=== PATIENT | male | born 1950 | race Caucasian/White ===

== ENCOUNTER 2016-04-03 07:03 | Day surgery (SDC) | payer MEDICARE, OTHER ==
--- NOTE | 2016-04-02 11:20 | HP ---
DATE OF CLINIC: 03/21/2016 BEREKET TAYLOR : 1950 PLANNED PROCEDURE: Right Shoulder Arthroscopic Rotator Cuff Repair, Possible Capsular Release and Manipulation under Anesthesia, possible Subacromial Decompression and Biceps Tenodesis vs. Tenotomy DATE OF SURGERY: April 03, 2016 SURGEON: Luigi Morales M.D. HISTORY OF PRESENT ILLNESS Bereket Taylor is a 65 year old male. * Medication list reviewed with patient allergy list reviewed with patient. * Tried Injections * Has not tried NSAIDS * Has not tried Physical Therapy The patient is a 65-year-old, RHD male who has had persistent right shoulder pain since the spring. He was seen previously by a different orthopedic group, but became frustrated and asked to see me. I diagnosed the patient with a full thickness rotator cuff tear and because of a persistent amount of stiffness and capsulitis. Pre-operatively, I asked him to see PT which has helped his ROM but he is still not quite normal. He has two complaints: Pain and stiffness. He currently is working as [employer] Machine Operator. He continues to like to be active. He states that PT really has improved his ROM and his pain. He rates his pain between 1-2/10. He states that overall he thinks he is doing better, but would still like to talk about potentially moving ahead with surgery. He would like to talk to me a little bit about what arthroscopic surgery would entail and would like to show me today what his improvement of ROM looks like. We discussed both non-operative and surgical treatment and he has elected to proceed with surgery. He presents today preoperatively. CURRENT MEDICATION * AmLODIPine Besylate 5 MG Tablet 1 once a day 0 days, 0 refills * Aspirin 325 MG Tablet 1 once a day 0 days, 0 refills * Atorvastatin Calcium 40 MG Tablet 1 once a day 0 days, 0 refills * Bydureon 2 MG Pen-injector once a week 0 days, 0 refills * Carvedilol 25 MG Tablet 2 twice a day 0 days, 0 refills * EQL Vitamin D3 1000 UNIT Capsule as directed 0 days, 0 refills * Fish Oil 500 MG Capsule as directed 0 days, 0 refills * Glimepiride 4 MG Tablet as directed 0 days, 0 refills * Invokana 300 MG Tablet as directed 0 days, 0 refills * Lisinopril 10 MG Tablet as directed 0 days, 0 refills * MetFORMIN HCl 500 MG Tablet 2 twice a day 0 days, 0 refills * TraMADol HCl 50 MG Tablet 1 once a day called in to pts pharmacy, 0 days, 0 refills * TraMADol HCl 50 MG Tablet as directed: one tab by mouth every night as needed for pain, 45 days, 0 refills * Valsartan 320 MG Tablet 1 once a day 0 days, 0 refills PAST MEDICAL/SURGICAL HISTORY Reported: Medical: Reported numbness, Reported tingling, cardiac history heart attack 1994, Diabetes Mellitus, and Hypertension. Surgical / Procedural: Prior surgery facial. Skin cancer. SOCIAL HISTORY Behavioral: Not a current smoker and not chewing tobacco. Never smoked. Smoking status: Never smoker. Alcohol: No consumption of alcohol. Drug Use: Not using drugs. 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 ALLERGIES * Penicillin * Vistaril FAMILY HISTORY 3 children living Family medical history mother- heart disease father- heart disease, stroke, DM, HTN REVIEW OF SYSTEMS Systemic: No fever and no recent weight change. Cardiovascular: No chest pain or discomfort and no palpitations. Pulmonary: No dyspnea, no cough, and no wheezing. Gastrointestinal: No nausea, no vomiting, no abdominal pain, and no diarrhea. Hematologic: No easy bleeding and no tendency for easy bleeding (no blood clots). Neurological: No motor disturbances and no sensory disturbances. Skin: No skin lesions and no rash. PHYSICAL FINDINGS * Vitals taken 03/21/2016 10:53 am BP-Sitting R 139/117 mmHg 100 - 120/60 - 80 BP Cuff Size Regular Pulse Rate-Sitting 87 bpm 50 - 100 Pulse Rhythm Regular Temp-Oral 97.8 F 96 - 101 Height 73 in 64 - 74 Weight 296 lbs 123 - 215 Body Mass Index 39.1 kg/m2 Body Surface Area 2.54 m2 Pain Level 0 General Appearance: * Well developed. * In no acute distress. Eyes: General/bilateral: Extraocular Movements: * Normal. Lungs: * Clear to auscultation. * No wheezing was heard. * No rales/crackles were heard. Cardiovascular: Heart Rate and Rhythm: * Heart rate was normal. * Heart rhythm regular. Abdomen: Palpation: * Abdominal non-tender. Neurological: * Oriented to time, place, and person. Motor: * Dominant Hand = Right Hand. I examined the patient's right and left shoulders. He has had improvement in terms of his ROM on the right side but it is not quite normal. He continues to have a capsular restriction however compared to his left side. PHYSICAL FINDINGS RIGHT EXTREMITY Shoulder General Appearance: no scars, no bruising, no swelling, no gross deformity AROM Forward Flexion: 130 degrees (90 degrees previously) ABD: 90 degrees (100 degrees previously) IR: Highest posterior anatomy reached with thumb: Sacrum PROM Forward Flexion: 150 degrees ABD: 120 degrees ER (0): 40 degrees Strength (0-5/5) Deltoid: 5/5 Triceps: 5/5 Biceps: 5/5 EPL,Finger Flexors,Finger Extensors,Wrist Flexors, Wrist Extensors,Intrinsics,Diaper Machine Tender: 5/5 Rotator cuff Supraspinatus:POSITIVE empty can test Infraspinatus: 4/5 (no pain with resisted external rotation) Subscapularis: 5/5 (negative belly press test) Rotator Cuff Exam Neer's Sign: POSITIVE Hawkin's Sign: POSITIVE Biceps Exam Bicipital Groove Tenderness: POSITIVE [place]'s Sign: POSITIVE Speed's Test: POSITIVE Muscle Deformity ([place]): Not present AC Exam AC Tenderness: Not tender AC Deformity: Negative Instability Generalized Laxity(thumb to forearm,hyperextension of elbows and knees, hypermobility of multiple joints): Not present, no signs of instability present Other Medial Scapular Tenderness: Negative Trapezius Pain: Negative Vascular Exam Radial Pulse: 2+ Sensation Gross sensation to light touch in the distribution of Median, Ulnar and Radial nerves present PHYSICAL FINDINGS LEFT EXTREMITY Shoulder General Appearance: no scars, no bruising, no swelling, no gross deformity AROM Forward Flexion: 170 degrees ABD: 120 degrees IR: Highest posterior anatomy reached with thumb: L3 PROM Forward Flexion: 180 degrees ABD: 120 degrees ER (0): 50 degrees Strength (0-5/5) Deltoid: 5/5 Triceps: 5/5 Biceps: 5/5 EPL,Finger Flexors,Finger Extensors,Wrist Flexors, Wrist Extensors,Intrinsics,Diaper Machine Tender: 5/5 Rotator cuff Supraspinatus: 5/5 Negative empty can test Infraspinatus: 5/5 (no pain with resisted external rotation) Subscapularis: 5/5 (negative belly press test) Rotator Cuff Exam Neer's Sign: Negative Hawkin's Sign: Negative Superior Escape: Negative Biceps Exam Bicipital Groove Tenderness: Negative [place]'s Sign: Negative Speed's Test: Negative Muscle Deformity ([place]): Not present AC Exam AC Tenderness: Not tender AC Deformity: Negative Instability Generalized Laxity(thumb to forearm,hyperextension of elbows and knees, hypermobility of multiple joints): Not present, no signs of instability present Other Medial Scapular Tenderness: Negative Trapezius Pain: Negative Vascular Exam Radial Pulse: 2+ Sensation Gross sensation to light touch in the distribution of Median, Ulnar and Radial nerves present TESTS * Test: CBC NO DIFF Report Date: 03/21/2016 WBC 5.9 10*3/mL MCV 93.0 fL RBC 5.13 10*6/uL MCH 31.6 pg High MCHC 34.0 g/dL RDW 13.3 % PLATELET COUNT 203 10*3/mL HCT 47.7 % HGB 16.2 g/L * Test: BASIC METABOLIC PROFILE Report Date: 03/21/2016 BUN 11 mg/dL BUN/CREAT RATIO 12 CALCIUM 9.4 mg/dL GLUCOSE 112 mg/dL High CREATININE 0.9 mg/dL SODIUM 140 meq/L POTASSIUM 4.2 meq/L CHLORIDE 103 meq/L CARBON DIOXIDE 28 meq/L ANION GAP 13 meq/L GFR 85 IMAGING 12.21.2015--4 views of the right shoulder show no signs of glenohumeral osteoarthritis. No signs of frx or dislocation. The patient has a Type 2 acromion on the scapular Y view. 09.18.2015--MRI of the shoulder shows a right shoulder full thickness tear of the supraspinatus with a degenerative labral tear. The patient's MRI does not go too far medially but has some atrophy of his supraspinatus muscle belly. I would grade his atrophy as grade 2 Goutallier stage. ASSESSMENT Luigi Morales MD made the following assessments * Complete tear of right rotator cuff tendon * Rotator cuff tendonitis -right impingement syndrome * Bicipital tendonitis -right PLAN * OTHER OxyCODONE HCl 5 MG TABS, as directed: one to two tabs by mouth every 4-6 hours as needed for pain, 7 days, 0 refills Clindamycin HCl 150 MG CAPS, as directed: please take two tabs by mouth every 8 hours until completed after surgery, 2 days, 0 refills Luigi L. Puskas MD ordered the following therapy * Arthroscopy of the shoulder with RCR, capsular release, debridement, SAD and biceps tenodesis vs. tenotomy -right THERAPY * Patient fall risk screen negative. * Patient eligible for fall risk assessment. * Patient received fall risk assessment. SURGICAL CONSENT We have discussed surgical options including right shoulder arthroscopic rotator cuff repair, capsular release and possible manipulation, possible biceps tenotomy vs tenodesis and possible subacromial decompression. The patient and I spoke about his shoulder. I do think a rotator cuff repair can help with the patient's pain. I do have concerns about post-op stiffness due to his pre-operative capular tightness. I explained to the patient that I will possibly perform a capsular release but this still will not preclude the patient from developing stiffness. He states that he understands this. We then spoke about other complications such as infection which is increased due to his underlying diabetes. We spoke about a nerve block and the risks of injury to surrounding nerves and blood vessels. After a lengthy description, the patient signed the consent form and we discussed his post-op pain control. The patient was counseled in detail regarding the diagnosis, treatment options available, prognosis of each treatment option and the potential risks and complications. The risks of surgery include, but are not limited to, anesthetic , neurovascular complications, pulmonary embolism, deep vein thrombosis, wound dehiscence, failure of any or all of the discussed procedures, infection of the joint or surrounding soft tissue, need for revision surgery, chronic pain, limitations in activities of daily living, inability to return to work, and loss of normal range of motion or functional use of the extremity. There is the possibility of failure over time that may require additional operative or nonoperative treatment. The patient acknowledged that there are a number of perioperative risks not mentioned here and would still like to proceed. The patient is aware of and understands these risks, and wishes to proceed with the proposed surgical procedure and other procedures as indicated at the time of surgery. The patient has seen his PCP for a preoperative medical risk assessment. The preoperative instructions were reviewed with the patient and all questions were answered. CARE TEAM Car Beyer MD Internal Medicine BLP/sg
[~2016-04-03 07:03] MED LIST: CLINDAMYCIN 600 MG PREMIX 50 ML IV PRN; IV START KIT ONE; LACTATED RINGERS 1,000 ML ONE
[2016-04-03] MEDS ORDERED: CLINDAMYCIN 600 MG PREMIX 50 ML IV ONE (07:08)
[2016-04-03] MEDS ORDERED: KETAMINE HCL UD SYRINGE 100 MG/2 ML IV ONE (07:21)
[2016-04-03] MEDS ORDERED: ONDANSETRON 4 MG/2ML 2 ML VIAL ONE (07:21)
[2016-04-03] MEDS ORDERED: SUCCINYLCHOLINE CHL 20 MG/ML DOSE ONE (07:21)
[2016-04-03] MEDS ORDERED: ROCURONIUM BROMIDE 10 MG/ML DOSE IV ONE (07:21)
[2016-04-03] MEDS ORDERED: MIDAZOLAM HCL 5 MG/5 ML VIAL ONE (07:21)
[2016-04-03] MEDS ORDERED: FENTANYL 5 ML ONE (07:21)
[2016-04-03] MEDS ORDERED: GLYCOPYRROLATE 0.2 MG/ML 1ML VIAL ONE (07:21)
[2016-04-03] MEDS ORDERED: PROPOFOL 60 ML IV ONE (07:21)
[2016-04-03] MEDS ORDERED: DEXAMETHASONE SOD PHOS 4 MG/1 ML VIAL ONE (07:21)
[2016-04-03] MEDS ORDERED: LIDOCAINE 2% (PRES FREE) 5 ML VIAL ONE (07:26)
[2016-04-03] MEDS ORDERED: ROPIVACAINE 0.5% 30 ML VIAL ONE (07:35)
[2016-04-03] MEDS ORDERED: NERVE BLOCK PROCEDURAL TRAY 1 EACH ONE (07:35)
[2016-04-03] MEDS ORDERED: ESMOLOL HCL 10 MG/ML 10ML VIAL IV ONE (09:29)
[2016-04-03] MEDS ORDERED: PHENYLEPHRINE 10 MG/1 ML (1%) VIAL ONE (09:30)
[2016-04-03] MEDS ORDERED: PROPOFOL 20 ML IV ONE (09:31)
[2016-04-03] MEDS ORDERED: HYDROMORPHONE HCL 1 MG/ML SYRINGE IV PRN (11:41)
[2016-04-03] MEDS ORDERED: ATROPINE SULFATE 0.4 MG/1 ML VIAL IV PRN (11:41)
[2016-04-03] MEDS ORDERED: ONDANSETRON 4 MG/2ML 2 ML VIAL IV PRN (11:41)
[2016-04-03] MEDS ORDERED: PROMETHAZINE HCL 25 MG/ML VIAL IM PRN (11:41)
[2016-04-03] MEDS ORDERED: NALOXONE HCL 0.4 MG/ML VIAL IV PRN (11:41)
[2016-04-03] MEDS ORDERED: FENTANYL 100 MCG/2 ML VIAL IV PRN (11:41)
[2016-04-03] MEDS ORDERED: ON-Q PUMP/ROPIVACAINE 0.2% 400 ML in PREMIX BAG 1 EACH NB PRN (11:42)
[2016-04-03] MEDS ORDERED: LACTATED RINGERS 1,000 ML IV SCH ×2 (11:45→13:50)
[2016-04-03] MEDS ORDERED: ON-Q PUMP/ROPIVACAINE 0.2% 450 ML ONE (11:57)
--- NOTE | 2016-04-03 12:11 | PCMBPN ---
Brief Post Op Note: Date of Procedure: 04/03/16 Preoperative Diagnosis: 1. right shoulder rotator cuff tear, labral tear, adhesive capuslitis and impingement Postoperative Diagnosis: 1. [Same] Procedure: right shoulder arthroscopic rotator cuff repair, arthroscopic biceps tenotomy, arthroscopic capsular release and manipulation, arthroscopic labral tear debridment and arthroscopic subacromial decompression Surgeon: Luigi Morales MD Assist:Alok CF-A Anesthesia: GETA, right intrascalene block and catheter Findings: as expected, the patient had a Type 4 labral tear, full thickness rotator cuff tear, two medial row anchors (healix and corkscrew) and one lateral row anchor Condition: extubated, stable vitals transferred to pacu Complications: None IV Fluids: 3500 mLs of LR Urine Output: 285 mLs Estimated Blood Loss: 20 mLs Tourniquet Time: [N/A] Specimens: [N/A] Implants: None Drains: [N/A] PLAN: NWB on the RUE. SLing at all times for 4 weeks after surgery. Oxycodone and clinda for marti-op prescriptions
[2016-04-03] MEDS ORDERED: ALBUTEROL NEB 2.5 MG/3 ML VIAL.NEB NEB ONE ×2 (12:54→13:02)
[2016-04-03] MEDS ORDERED: FUROSEMIDE 20 MG/2 ML VIAL ONE (13:15)
[2016-04-03] MEDS ORDERED: FUROSEMIDE 20 MG/2 ML VIAL IV ONE (13:16)
[2016-04-03] MEDS ORDERED: MORPHINE SULFATE 2 MG/ML SYRINGE IV PRN (13:50)
[2016-04-03] MEDS ORDERED: DIPHENHYDRAMINE HCL 50 MG/1 ML VIAL IV PRN (13:50)
[2016-04-03] MEDS ORDERED: ACETAMINOPHEN 325 MG TABLET PO PRN (13:50)
[2016-04-03] MEDS ORDERED: OXYCODONE HCL 5 MG TABLET PO PRN (13:50)
--- NOTE | 2016-04-04 10:01 | OP ---
Bereket TAYLOR Nish : 1950 [id number] DATE OF PROCEDURE: April 03, 2016 PREOPERATIVE DIAGNOSES: Right shoulder rotator cuff tear, labral tear, adhesive capsulitis and impingement. POSTOPERATIVE DIAGNOSES: Right shoulder rotator cuff tear, labral tear, adhesive capsulitis and impingement. PROCEDURE: RIGHT SHOULDER ARTHROSCOPIC ROTATOR CUFF REPAIR, ARTHROSCOPIC BICEPS TENOTOMY, ARTHROSCOPIC CAPSULAR RELEASE AND MANIPULATION, LABRAL TEAR DEBRIDEMENT AND ARTHROSCOPIC SUBACROMIAL DECOMPRESSION. SURGEON: Luigi Morales M.D. MACHINE FEEDER FLOORPERSON: Xiomara Steven ANESTHESIA: General along with a right interscalene block and catheter. FINDINGS: As suspected the patient had a type 4 labral tear which extended into the biceps anchor and after probing this I thought he would benefit from treating this with a labral tear debridement and a biceps tenotomy. This was performed arthroscopically. The patient had a small area on the anterior aspect of his humeral head where he had a 2 cm x 1.5 cm area of chondromalacia. He had a full thickness tear crescent pattern of the rotator cuff. This was fixed with two medial row anchors which was a 5.5 corkscrew anchor and a 4.5 Healix anchor. These sutures were passed arthroscopically and placed down to one lateral row anchor. Prior to placing these sutures down the footprint was burred to allow good bleeding bed, I also performed a subacromial decompression. CONDITION: The patient was extubated with stable vital signs and transferred to the PACU. COMPLICATIONS: None. INTRAVENOUS FLUIDS: 3500 mL of Lactate Ringer's. URINE OUTPUT: 285 mL ESTIMATED BLOOD LOSS: 20 mL SPECIMENS: N/A TOURNIQUET TIME: N/A IMPLANTS: None. DRAINS: N/A PLAN: The patient will be nonweightbearing on the right upper extremity. We will plan on him wearing the sling for four weeks after surgery because of concerns of stiffness after surgery. Oxycodone and clindamycin were given preoperatively for his perioperative prescriptions. After my manipulation I was able to forward flex him to 170 degrees, abduct him to 120 degrees and externally rotate him to 50 degrees. INDICATIONS: The patient is a 65-year-old male who has had persistent pain in his right shoulder that has not improved with nonoperative treatment. Prior to the surgery I had the patient work with physical therapy to help with his range of motion. I told him that one of the increased complication risks for this patient is stiffness after the surgery, however I feel that he has been able to participate well with physical therapy and though some of this pain has come from capsular stiffness, I do think that there is some element related to his rotator cuff tear. The patient's clinical exam was concerning for pain from the rotator cuff. Prior to surgery I talked to him about the risks and benefits of the proposed procedure which include but are not limited to persistent pain, shoulder stiffness, injury to surrounding nerves and blood vessels. I told him that there is always a risk when doing capsular release or manipulation for fracture, injury to surrounding nerves and blood vessels such as a neuropraxia. The patient states that he understands these risks. We both feel that the benefits outweigh these risks and we are ready to proceed. PROCEDURE DESCRIPTION: The patient was seen in the preoperative area. The right arm was signed with the word "Yes" and my initials. I updated and signed the H&P and confirmed with the patient that the consent form matched our proposed procedure. The patient was seen by the anesthesia team who reviewed with the patient about the risks and benefits of right intrascalene block. The patient agreed to have it placed under ultrasound guidance. It was placed without difficulty. The patient was transferred from the preoperative area to the operating theater where they were transferred from the stretcher to the operating room bed. Patient had intraoperative SCD's placed for DVT prophylaxis. The patient had a safety belt placed and then the patient was put to sleep without any problems. I took the patient's right arm through a range of motion forward flexion was to 130 degrees, abduction to 100 degrees, external rotation was to 20 degrees. The patient was then placed in the left lateral decubitus position making sure an axillary roll was placed and all bony prominences were well-padded. The patient was rotated so that their back was approximately 30 degrees tilted posterior and the bed was turned 90 degrees in the room. The patient was then prepped and draped in sterile fashion first with a Betadine scrub, paint and then chlorhexidine. The patient was then placed in balanced suspension with their arm in the Arthrex STAR sleeve. At this point we performed a final time out confirming that the right side was the correct side, everyone in the room confirmed that the procedure matched the consent form and that xrays and MRI images were on the imaging board. We confirmed that clindamycin, 2 gram had been given to the patient approximately 30 minutes prior to the final time out. At this time a spinal needle was used with 30 mL with normal saline to insufflate the joint through the posterior portal. Once the shoulder was insufflated a #15 blade was used to incise the skin by the posterior portal and the scope trocar was placed without incident. At this point the patient's anterior portal was made using a spinal needle from an outside-in technique first using a spinal needle to identify the position in the rotator interval followed by an incision with another #15 blade, placement of a switching stick and a 7mm cannula. Once this was in place a 15-point exam was performed using an arthroscopic probe viewing from posterior to anterior and anterior to posterior. The patient's shoulder was quite tight consistent with a capsulitis. I used my arthroscopic probe to evaluate the labrum as well as the biceps. I felt that the labral tear included the anterior aspect of the labrum and into the biceps anchor. I thought that the patient would be best served with a biceps tenotomy. With the VAPR I performed this tenotomy. I then used the VAPR to release the superior glenohumeral ligament. I then performed an anterior capsule release. I then took the patient's arm out of the STAR sleeve and balance suspension and performed a gentle manipulation. I was able to forward flex the arm to 170 degrees, abduct to 120 degrees, and gently externally rotate to 45 degrees. External rotation was still tight. I elected not to push this farther. I then placed the arm back in the balance suspension. I turned my attention to the undersurface of the rotator cuff and the humeral head. The patient had a small area which was 20 mm x 15 mm of chondromalacia. There was not a concomitant area on the glenoid. This was a full thickness crescent shaped tear. I then moved my scope to the subacromial space. The patient had abrasions and signs of external impingement on the undersurface of the CA ligament. I elected to perform a subacromial decompression and released the undersurface of the CA ligament from the undersurface of the acromion. I then turned my attention to my rotator cuff repair. I used a shaver and then a bur to prepare the footprint of the rotator cuff. I elected to place two medial row anchors, the anterior one was a 5.5 corkscrew anchor. The posterior one was a 4.5 Healix anchor with these were placed with a FastPass. I then elected to after passing these tie these down arthroscopically and placed all of these sutures down to one lateral row anchor. At this point I confirmed good hemostasis. I was happy with my repair after probing it and was ready to complete the surgery. At the end of the case all sponge and needle counts were correct. I then irrigated the wounds closing the skin with interrupted 4-0 Nylon sutures. Then the dressings were placed including Xeroform, 4x4, ABD along with a cryo-cuff and the patient's arm was placed in a sling. All needle and sponge counts were correct. The patient was awoken without difficulty, taken to the recovery room where the patient had good pain control. My postoperative plan will be to immobilized him for four weeks because of my concerns of stiffness and then allow him to start active assisted range of motion. He was given oxycodone and clindamycin for postoperative prescriptions. I spoke to the family regarding the surgery. Job [id number] CC: Suresh Silva
== END 2016-04-03 18:25 | disposition home or self-care (01) ==
LOC: SDC 07:03
PROVIDERS: ATTEND Orthopaedic Surgery
PROC: 0RNJ4ZZ Release Right Shoulder Joint, Percutaneous Endoscopic Approach (ICD-10-PCS; principal; 2016-04-03)
PROC: 0LQ14ZZ Repair Right Shoulder Tendon, Percutaneous Endoscopic Approach (ICD-10-PCS; principal; 2016-04-03)
DX: M75.121 Complete rotator cuff tear or rupture of right shoulder, not specified as traumatic (principal); S43.431A Superior glenoid labrum lesion of right shoulder, initial encounter; M75.01 Adhesive capsulitis of right shoulder; M75.41 Impingement syndrome of right shoulder; E78.00 Pure hypercholesterolemia, unspecified; I10 Essential (primary) hypertension; E11.9 Type 2 diabetes mellitus without complications; I25.2 Old myocardial infarction; Z79.84 Long term (current) use of oral hypoglycemic drugs; Z79.82 Long term (current) use of aspirin
CPT/HCPCS: 29827; 29826; 29999; J3010; J1100; J1940; J2795 ×3; J2370; J2250; J2405; J7120; A4306